=== PATIENT | male | born 1935 | race Caucasian/White ===

== ENCOUNTER 2019-02-04 05:43 | Inpatient (IN) | payer MEDICARE, OTHER, SELFPAY ==
[2019-01-21 09:51] VITALS: BMI 24.0
[2019-02-04] VITALS (13 sets, daily range): BP systolic 93–157; BP diastolic 55–84; PULSE 67–91; RESP 12–20; TEMP 35.8–37.1; O2SAT 12–100; BMI 24.0
--- NOTE | 2019-02-04 | DI.RAD.S_ITS ---
PROCEDURE: XR LUMBAR SPINE 2-3V INDICATIONS: L4-5 TLIF TECHNIQUE: 2 intraoperative fluoroscopic views of the lumbar spine were acquired. COMPARISON: [facility], , L-SPINE 2-3 VIEWS, 08/10/2016, 11:24. FINDINGS: Deangelo intraoperative fluoroscopic images of lumbar spine shows transpedicular fusion at L4-5 level with intervertebral spacer placement. Alignment of lumbar spine is anatomic. IMPRESSION: Fluoroscopy guidance was provided intraoperatively for L4-5 fusion. Dictated by: Bao Shearer M.D. on 02/04/2019 at 10:54 Approved by: Bao Shearer M.D. on 02/04/2019 at 10:57
[2019-02-04] MEDS: LACTATED RINGERS 1,000 ML 42 ML IV (07:00)
--- NOTE | 2019-02-04 07:28 | PM.PREOP ---
Pre-operative Note Interval Note History & Physical reviewed/Exam performed by Physician: Yes Changes to H&P: No
--- NOTE | 2019-02-04 07:28 | PM.OP.1 ---
Operative Date/Time/Diagnoses Date of procedure: 02/04/19 Time of procedure: 10:14 Pre-op diagnosis: lumbar stenosis with radiculopathy Lumbar Spondylolisthesis Post-op diagnosis: same Procedure & Clinicians Procedure: L4-5 laminectomy L4-5 TLIF (post/post interbody fusion) L4,5 screws cage icbg aspirate use of microscope placement of epidural catheter Same procedure as scheduled: Yes Indications: [age] year old male with intractable pain from stenosis. They had failed conservative management and requested operative intervention. Risks and benefits of surgery were discussed and appropriate consents were obtained. Surgeon: Maikol Rueda Circulation Tender: Dinora Koch Anesthesia Type: General Operative Notes Findings: None Closure Type: primary Specimen(s): none sent Prosthetic devices, grafts, tissues, transplants, or devices: NuVasive MAS reline screws Globus Rise cage Applied: catheter Estimated Blood Loss (mL): 20 Blood products transfused: none Procedure in detail: The patient was brought to the operating room and intubated on the table. A time-out was performed. They were then rolled over to the well-padded Raji table in the prone position. Preoperative antibiotics were given. The back was prepped and draped in the standard sterile fashion. Using fluoroscopy, a 4 cm longitudinal incision was made to the left of the midline. We used Bovie to come down to and split the lumbodorsal fascia. Using fluoroscopy and monitoring, we then percutaneously placed Jamshidi needles down the pedicles of L4 and L5 on the left side. These were changed out to guidewires and then we tapped and then placed the NuVasive MAS Reline screw shanks. We then opened up the retractors and used Bovie to clear up the posterolateral gutter as well as medially along the lamina to the spinous processes. A bur was used to decorticate the transverse processes. We brought in the microscope. Using a combination of bur and Kerrison rongeurs, a laminectomy was performed from the left side. We cleared over past the midline and carefully depressed the dura until we were able to decompress the opposite side. We cleared out the neural foramen. This completed the laminectomy at L4-5. This was separate and distinct from the TLIF approach as we were extensively decompressing the canal and the nerves. We then began the TLIF prep. A complete facetectomy was performed on this side at L4-5. We carefully cleaned up the remainder of the foramen until we could easily retract the exiting root as well as clearing medially below the dura and expose the disc space. The disc was prepped with bipolar and then an annulotomy was performed. We performed a diskectomy using a combination of paddles, aria, pituitaries, and curettes. We distracted the disc using a paddle and locked the retractor in an open position. We then filled the disc space with Osteocel bone graft. We then placed the globus Rise cage under fluoroscopy and then filled this in with more bone graft. The distraction on the retractor was released to compress down. This completed the posterior interbody fusion portion of the TLIF at L4-5. We then placed the screw heads, oscar, and locked down the set screws. The wound was copiously irrigated. A small stab incision was made over the PSIS. We used a Jamshidi needle to aspirate several mL of bone marrow from the pelvis. This was mixed with the remaining Osteocel and combined with all of the locally harvested bone graft and placed in the posterolateral gutter for the posterior fusion of the TLIF at L4-5. An epidural catheter was then placed in the spinal canal by carefully depressing the dura and advancing it 6 cm cephalad under the remaining lamina without resistance. The muscle fascia was closed. The catheter was then injected with a solution containing 4 mL of 0.5% Marcaine, 1 mg Stadol, 4 mg Duramorph, and 100 mcg of fentanyl. This was injected without resistance and the catheter was pulled. We then went to the opposite side. Again using fluoroscopy, a 3 cm incision was made and Bovie was used to come down to split the fascia. Using neural monitoring and fluoroscopy, Jamshidi needles were advanced down the pedicles of L4 and L5 on the right side. These were switched over guidewires, tapped, and screws placed. We then placed a oscar and locked the set screws on this side. The wound was irrigated. The fascia was closed. Vancomycin powder was placed in the wounds. The superficial and skin were closed. A sterile dressing was placed. The patient was then rolled over extubated and brought to recovery room without complications. Complications: none Condition: stable Disposition: PACU Plan for aftercare: Inpatient. Up with PT.
[2019-02-04] MEDS: CEFAZOLIN 2 GM/100 ML FROZ.PIGGY IV ×3 (07:50→23:43)
--- NOTE | 2019-02-04 08:28 | SUR.OPER ---
Prone on spine table, head in foam head support, padded chest and pelvic supports, gel pad at knees, lower legs supported by pillows; nipples, genitalia and toes free of pressure, arms secured on foam padded arm boards at <90 degrees abduction. Tape over blanket at thigh secured to table.
[2019-02-04] MEDS: VANCOMYCIN 1,000 MG VIAL 1000 MG TOP (08:40)
[2019-02-04] MEDS: THROMBIN (RECOMBINANT) 5,000 UNIT VIAL 5000 UNIT TOP (08:41)
[2019-02-04] MEDS: SODIUM CHLORIDE 0.9% 1,000 ML, GENTAMICIN 80 MG IRR (08:42)
[2019-02-04] MEDS: BUPIVACAINE 0.5% (PF) 4 ML, MORPHINE-PF 4 MG, BUTORPHANOL 1 MG, fentaNYL 100 MCG INJ (09:55)
--- NOTE | 2019-02-04 13:44 | CM.DANOTE ---
Discharge Planning/Care Management DCP: assessment: case received, EMR reviewed and went to room to check in with pt and or family. Pt was found to still be in surgery. DCP contact info placed on white board in room. Documentation reveals that pt is an 83 year old male who admitted early this morning for a planned spinal surgery: Surgeon: Dr. Rueda. PCP: Dr. Jose Parisi Payer: Medicare and [employer] Pt's preop plan, see pre-anesthesia assessment template below, does indicate that pt has planned for assistance after surgery but unknown at this time what that might be. Anticipate OT and PT will be ordered. DCP team will follow for d/c issues and options. CM Discharge Assessment Start: 02/04/19 13:42 Freq: Status: Active Protocol: Document 02/04/19 13:43 ITV (Rec: 02/04/19 13:44 ITV [id number]) Discharge Planning Assessment Advance Directives? No: Declines further information History Provided By Medical Record Prior Living Arrangements Mobile home Household Members none Whiteboard Updated in Patient Room with Yes name and ext. # of Bog Worker Review Status In Process Next Review Type Continued Stay Review Pre-Anesthesia Assessment Start: 01/21/19 09:51 Freq: Status: Active Protocol: Document 01/21/19 09:51 CAB (Rec: 01/21/19 11:01 CAB [id number]) Pre-Anesthesia Assessment Patient Also Known As (SUDARSHAN) Stacia Patient Information Reviewed Via Phone Assessment Assessment Completed With Patient Diagnostic Results BMP/CMP CBC EKG Primary Care Provider Dalton Shaikh Medical Clearance Received Yes Seen Specialist in Last 12 Months Yes Specialist Seen Orthopedist Comment PCP pre-op/clearance 01/14/19 scanned to record Primary Language Kyrgyz Semiconductor Engineer Required No Height 162.56 cm Weight 63.503 kg Body Mass Index (BMI) 24.0 Hearing Ability Hard of Hearing Use of Hearing Aid Dentition Type Partial- Lower Full- Lower Barriers to Learning Auditory Other Aids No Hx Anesthesia Reactions No Hx Family Anesthesia Reaction No Hx Malignant Hyperthermia No Hx Blood Transfusions No Anesthesia Review Requested No Paranormal Investigator No alcohol intake former Smoking Status Former smoker how long ago did patient quit smoking Quit age 29 Substance Use Type does not use Pain Present Pain Reported Musculoskeletal Symptoms Abnormal Gait Back Pain Difficulty Walking Joint Pain Numbness Radiating Pain into Limb History of Falling (Recent or History of No ) Patient is completely paralyzed or No completely immobile Mental Status Oriented to own ability Is patient on oxygen? No Does patient have MARIE/SOB Yes: Hx of COPD, Asthma Hx Sleep Apnea No Currently Taking a Beta Dieter No Can You Climb a Flight of Stairs Without No SOB Hx Chest Pain No: NE w/stent x 1 2008 Hx SOB Yes: Hx of COPD, Asthma Hx Syncope or Dizziness No Anti-Coagulant Therapy No Has a Curriculum Coordinator Yes: Dr. Gutierres-last visit Cardiac Testing No Hx Pacemaker/ICD No Pacemaker Rep Required? No Cardiac Clearance Received Not Applicable Comment Cardiac visit ECG scanned to record Diet Type At Home Regular dysphagia No Urinary Catheter Present No Hx Urinary Self Catheterization No Diabetes No Hx Drug Resistant Organism No Presence of External or Internal Medical No Devices Have you traveled outside the [facility] in the last 30 days? Marital Status / Lives With none Prior Living Arrangements Mobile home Support System Friend(s) Sibling(s) Does the Patient Have Assistance After Yes Surgery Patient Discharge Plan Description Return Home Comment Pt advised 2-3 day length of stay per surgeon's office Feels Safe in Current Environment Yes Been Physically Hurt or Threatened By a No Person in Current Environment Do you have thoughts of harming yourself None or others? Are you currently considering suicide? No Do you have a plan to hurt yourself or No Plan others? Do You Have Any Spiritual Beliefs That No May Affect Your HC Choices? Do You Have Any Cultural Practices That No May Affect Your HC Choices? Spiritual Referral In-House Brokerage Clerk Comment Darnell Who Can We Speak to About Patient's Care Family, friends Identifying Code for Release of Patient Declines to issue Information Health Care Proxy/Next of Kin Ana Paula (sister) Health Care Proxy Emergency Contact Name Ana Paula () Emergency Contact Advance Directives? No: Declines further information PAC Instructions Durable medical equipment Medications to take/avoid Nasal antibiotic NPO Post-op transportation Pre-surgical wash Sensory aids Sturdy shoes/comfortable clothes
[2019-02-04] MEDS: CELECOXIB 200 MG CAPSULE 400 MG PO (14:49)
[2019-02-04] MEDS: LACTATED RINGERS 1,000 ML 125 ML IV ×2 (14:49→20:50)
--- NOTE | 2019-02-04 15:16 | PC.NURSE ---
Pt is complaining of right upper arm pain, where picc line is inserted. got an order for patient to have ultrasound, this has not been done yet. TOOLS AND PARTS ATTENDANT to call down and see if she can get a hold of them to get this done. Pt has ostomy bag placed on r.upper side for fistula drainage, o drainage noted. Pt also has a gtube placed to l.side of abdomen that drains into a bowers bag, she had 450cc of bile colored drainage out. Pt given iv dilaudid x2 and ativan x1 for nausea.
--- NOTE | 2019-02-04 15:22 | PC.NURSE ---
Pt arrived to floor around 1145. He has been sleepy but is waking up now and was never lethargic. LR is infusing at 125cc an hour and is tolerating this well. Just given some ice water and pt is comfortable. Back dressing wnl and pt is able to move side to side.
[2019-02-04] MEDS: METOCLOPRAMIDE 10 MG/2 ML INJ IV (20:01)
[2019-02-04] MEDS: CELECOXIB 200 MG CAPSULE PO (20:55)
[2019-02-04] MEDS: GABAPENTIN 300 MG CAPSULE PO (20:55)
[2019-02-04] MEDS: SENNOSIDES 8.6 MG TABLET 17.2 MG PO (20:55)
[2019-02-04] MEDS: DOCUSATE 100 MG CAPSULE PO (20:55)
[2019-02-04] MEDS: SIMVASTATIN 40 MG TABLET PO (20:56)
--- NOTE | 2019-02-04 23:59 | PC.NURSE ---
Pt aleert when awakened, but remains drowsy, PT opted out for getting pt OOB this shift due to weakness and drowsiness. removed O2, SpO2 97-98%RA, LS clear. BT+, denies nausea, but at 1700 pt had 50mL emesis, and again at 2000 100mL emesis, admin raglan IVP, effective, able to keep down 2100 meds. Pt's caregiver in to visit. Cooney patent and draining clear yellow urine, 800mL out this shift. gauze/tegaderm low back drsg CDI. R hand LR @ 125 infusing. Bed alarm on.
[2019-02-05] VITALS (7 sets, daily range): BP systolic 110–155; BP diastolic 60–91; PULSE 74–86; RESP 16–20; TEMP 36.6–37.6; O2SAT 96–100
[2019-02-05] MEDS: ONDANSETRON 4 MG/2 ML INJ IV ×3 (01:50→23:26)
[2019-02-05] MEDS: SODIUM CHLORIDE 0.9% FLUSH 10 ML IV ×2 (01:54→21:55)
[2019-02-05] MEDS: LACTATED RINGERS 1,000 ML 125 ML IV (05:10)
[2019-02-05 06:01] LABS: Hematocrit 36.9 % (41-53)
--- NOTE | 2019-02-05 08:01 | PM.PNPO.1 ---
Subjective Date Patient Seen: 02/05/19 Time Patient Seen: 08:01 Interval history: Only about 2/10 back pain. Some tingling in the legs but no leg pain. has been nauseated since surgery. Exam Vital Signs (past 8 hours): - 02/05/19 05:29 Temperature 98.2 F Pulse Rate 74 Respiratory Rate 20 Blood Pressure 110/60 Pulse Oximetry 100 Oxygen Delivery Method Nasal Cannula Oxygen Flow Rate 2 Const Orientation: alert and oriented x3 Back/Spine/Pelvis Other: Mild dry drainage on the bottom right. 5/5 motor both lower extremities. Objective Labs Result Diagrams: 02/05/19 04:50 Labs: Laboratory Results - last 24 hr 02/05/19 04:50 Hgb 12.0 L Hct 36.9 L Assessment & Plan Post-op Postoperative Procedures Operation Date: 02/04/19 07:45 Actual Procedures Side Surgeon p L4-5 laminectomy and instrumented fusion (TLIF) w/bone graft Maikol Rueda MD overall he is doing very well. Continue with antinausea medications. he does get nausea from narcotics but has been able to tolerate tramadol. He can start using that when his pain starts increasing as the epidural wears off today. Quality VTE Deep Vein Thrombosis/Pulmonary Embolism Present on Admission: No
[2019-02-05] MEDS: ASPIRIN EC 81 MG TABLET PO (08:13)
[2019-02-05] MEDS: CHOLECALCIFEROL (VITAMIN D3) 5,000 UNIT TABLET 5000 UNIT PO (08:13)
[2019-02-05] MEDS: CELECOXIB 200 MG CAPSULE PO ×2 (08:13→21:40)
[2019-02-05] MEDS: DOCUSATE 100 MG CAPSULE PO ×2 (08:13→21:40)
[2019-02-05] MEDS: MULTIVITAMIN 1 TABLET 1 TAB PO (08:13)
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
--- NOTE | 2019-02-05 10:58 | PC.NURSE ---
Addendum entered by Bridgett Marquis R.N. 02/05/19 15:15: Asked pt if okay to d/c his bowers as he has worked well with pt. States that he would like to wait until tomorrow morning to have this removed. Pt complained of pain and given 50mg of tramadol which was effective for discomfort. Original Note: 0800-Pt is A&Ox3, he denies pain. Dressing to lower back with a moderate amount of bloody drainage that is dried. Pt states that he has some numbness and tingling to both legs, which he describes as feeling much better after surgery. Pt has a bowers that is putting out yellow urine. After he has worked with PT, bowesr catheter will come out. IVF infusing as pt has not taken much po in. Given zofran before eating and po medication. He is now working with PT and denies discomfort.
--- NOTE | 2019-02-05 13:02 | CM.DPC ---
DCP Cont: Met with patient to discuss discharge planning. Pleasant. Alert and oriented. Patient lives in [place] with his dog, and his sister lives nearby. He stated that his sister would be helping him at home. She also resides in [place]. Patient stated that he had been having numbness in his left foot, and had been hard for him to get around. In this perspective, he looked up Dr. Rueda and had a consult with him after his MRI. He then decided to have spinal surgery. Patient stated that he had been walking approximately 3 miles a day before he starting having these symptoms. 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 He stated, he plans to go home from the hospital, and already has physical therapy set up at [facility]. Patient stated, his foot is no longer numb after having surgery. He will be working with physical therapy today. P: DCP to continue to follow. Plan is for home when stable with outpatient physical therapy. Blanca Lindsay RN/Medicaid Billing Clerk
[2019-02-05] MEDS: TRAMADOL 50 MG TABLET PO ×2 (14:23→21:43)
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
--- NOTE | 2019-02-05 15:10 | PT.IPTN ---
Current Diagnoses Spondylolisthesis, lumbar region (02/04/19) Spinal stenosis, lumbar region with neurogenic claudication (02/04/19) Surgery Performed Operation Date: 02/04/19 07:45 Actual Procedures p L4-5 laminectomy and instrumented fusion (TLIF) w/bone graft - Maikol Rueda MD Physical Therapy Treatment Note M2 PT-IP Current Condition Start: 02/04/19 17:03 Freq: NEEDED Status: Active Protocol: Document 02/05/19 10:28 AB (Rec: 02/05/19 12:56 AB [id number]) Physical Therapy Current Condition Current Condition Evaluation Date 02/05/19 Treatment Diagnosis s/p L4-5 TLIF; difficulties in walking Onset Date 02/04/19 Precautions Lumbar Precautions Log Roll No Twisting Limit Bending Lifting Restriction of 10 lbs Gait Belt above Incisional Area M3 PT-IP Subjective Start: 02/04/19 17:03 Freq: NEEDED Status: Active Protocol: Document 02/05/19 15:10 AB (Rec: 02/05/19 16:39 AB [id number]) Subjective Physical Therapy Visit Type Type Treatment Note Visit Start Time 15:10 Visit Stop Time 15:33 Total Visit Minutes 23 Number of FIBERGLASS INSULATION INSTALLER Visits 0 Physical Therapy Visit Comments Patient Comments pt agreeable to do PT Therapy Pain Assessment Pain When Pain Assessed At Rest Pain Present Pain Present Pain Reported Location Lower Back Intensity 2 Scale Used Numeric (1 - 10) Pain Management Techniques Apply Cold Timing of Activity with Medications M4 PT-IP Mobility and Gait Start: 02/04/19 17:03 Freq: NEEDED Status: Active Protocol: Document 02/05/19 15:10 AB (Rec: 02/05/19 16:39 AB [id number]) PT-Bed Mobility Assessment Rolling Type of Rolling Log Rolling Level of Assist Standby Assistance Supine to Sit Supine to Sit Standby Assistance Scooting Scooting to Edge of Bed Standby Assistance PT-Transfer Assessment Sit to and From Stand Sit to and from Stand Standby Assistance Equipment Transfer Assistive Device Gait Belt Front Wheeled Walker Orthotic/Prosthetic Devices or Brace: No Gait Assessment Gait Gait Assistance Required: Standby Assistance Contact Guard Assist Distance (Feet) 300 Able to Maintain Weight Bearing Status Yes During Gait Assistive Devices Assistive Device Gait Belt Front Wheeled Walker Orthotic/Prosthetic Devices or Brace: No Gait Deviations General Gait Pattern Antalgic Narrow Based Gait Factors Limiting Gait Function Factors Limiting Gait Function Decreased Strength Limited Range of Motion Pain Poor Balance Comments Gait Comments pt ambulated towards the stairs >300 ft using FWW SBA to CGA and cues for safety. pt then ambulated back to his room after stair training using FWW >300 ft SBA to CGA. Stair Climbing Assessment Evaluation Level of Assist On Stairs Contact Guard Assistance Devices Stair Climbing Assistive Devices Left Railing Technique/Endurance Stair Climbing Direction Ascend and Descend Stair Climbing Technique Step Over Step Step to Step Number of Steps Climbed 3 Query Text: Stair Climbing Set # Repetitions (reps) 2 Comments Stair Climbing Comments pt completed step over step ascending the stairs but did step to step descending. M5 PT-IP Objective Assessments Start: 02/04/19 17:03 Freq: NEEDED Status: Active Protocol: Document 02/05/19 10:28 AB (Rec: 02/05/19 12:56 AB [id number]) Orientation Orientation/Cognition Level of Alertness Alert Orientation Name Age Place Situation Language Function Ability Hard of Hearing Safety Awareness Understands Safety Issues Memory Description Short Term Impaired Gross Range of Motion Lower Extremity ROM Assessment Within Functional Limits Strength Lower Extremity Strength Assessment Within Functional Limits Coordination Assessment Gross Coordination Gross Coordination WNL Sensation Assessment Sensation Gross Sensation Left LE Impaired Sensation Description Numbness Comments Sensation Comments stated that L lower leg still feels a little numb Muscle Tone Muscle Tone WNL Yes Other Assessments Other Other Assessments increase L genu varum M6 PT-IP Treatment Start: 02/04/19 17:03 Freq: NEEDED Status: Active Protocol: Document 02/05/19 15:10 AB (Rec: 02/05/19 16:39 AB [id number]) Physical Therapy Treatment Education Education Provided Precautions Safety M7 PT-IP Assessment and Plan Start: 02/04/19 17:03 Freq: NEEDED Status: Active Protocol: Document 02/05/19 15:10 AB (Rec: 02/05/19 16:39 AB [id number]) PT Summary Assessment and Plan Potential Rehabilitation Potential Good Summary Impairments Pain ROM Strength Balance Sensation Bed Mobility Transfers Gait Activity Tolerance Progress Towards Goals Progressing Toward Goals Assessment Summary pt is progressing well with mobility and requires SBA to CGA. pt plans to go with his sister to assist him as needed . pt may go home when medically stable. Goals Bed Mobility Goal Independent Transfer Goal Independent Front Wheeled Walker Gait Goal Independent Front Wheel Walker Gait Distance 250 Other Goals uup/down 3 steps L rail ascending SBA Days to Meet Goals 3 Frequency of Treatment Frequency Of Treatment Twice a Day Treatment Plan Physical Therapy Treatment Plan Bed Mobility Training Transfer Training Gait Training Therapeutic Exercise Balance Retraining Post Op Education Discharge Planning Hot or Cold Pack Neuromuscular Re-ed Coordination Retraining Manual Therapy Other Recommendations and Next Treatment bed mobility log roll, Focus ambulation, stair climbing Recommendations To Nursing Amount of Assist Needed 1 Person Assist Discharge Recommendations PT Discharge Recommendations Home with Assistance
[2019-02-05] MEDS: GABAPENTIN 300 MG CAPSULE PO (21:40)
[2019-02-05] MEDS: SIMVASTATIN 40 MG TABLET PO (21:40)
[2019-02-05] MEDS: SENNOSIDES 8.6 MG TABLET 17.2 MG PO (21:40)
[2019-02-05] MEDS: ALBUTEROL HFA 60 PUFF/8 GM INH INH (21:41)
[2019-02-06] VITALS (7 sets, daily range): BP systolic 109–149; BP diastolic 60–89; PULSE 73–88; RESP 15–20; TEMP 36.8–37.5; O2SAT 93–100
--- NOTE | 2019-02-06 06:21 | PC.NURSE ---
Cooney Catheter discontinued at 0620. Catheter intact w/ no resistance and pt tolerated well. Provided pt with a urinal at bedside and call light within reach.
--- NOTE | 2019-02-06 07:29 | PM.PNPO.1 ---
Subjective Date Patient Seen: 02/06/19 Time Patient Seen: 07:29 Interval history: Pain not bad at all. Just taking tramadol at this point. Still having some nausea but better. Has been up and mobilizing with therapy. Cooney just removed. Exam Vital Signs (past 8 hours): - 02/06/19 05:30 Temperature 99.5 F Pulse Rate 73 Respiratory Rate 16 Blood Pressure 109/62 Pulse Oximetry 96 Oxygen Delivery Method Room Air Oxygen Flow Rate 0 Const Orientation: alert and oriented x3 Back/Spine/Pelvis Other: Moderate right lower aspect of dressing drainage. 5/5 motor both lower extremities. Objective Labs Result Diagrams: 02/05/19 04:50 Assessment & Plan Post-op Postoperative Procedures Operation Date: 02/04/19 07:45 Actual Procedures Side Surgeon p L4-5 laminectomy and instrumented fusion (TLIF) w/bone graft Maikol Rueda MD He is doing well. Continue with just tramadol for pain medication. Continue mobilize with physical therapy and anticipate discharge tomorrow. Quality VTE Deep Vein Thrombosis/Pulmonary Embolism Present on Admission: No
[2019-02-06] MEDS: TRAMADOL 50 MG TABLET PO ×2 (09:29→13:57)
[2019-02-06] MEDS: DOCUSATE 100 MG CAPSULE PO (09:33)
[2019-02-06] MEDS: CELECOXIB 200 MG CAPSULE PO (09:33)
[2019-02-06] MEDS: CHOLECALCIFEROL (VITAMIN D3) 5,000 UNIT TABLET 5000 UNIT PO (09:33)
[2019-02-06] MEDS: MULTIVITAMIN 1 TABLET 1 TAB PO (09:33)
[2019-02-06] MEDS: ASPIRIN EC 81 MG TABLET PO (09:33)
--- NOTE | 2019-02-06 10:25 | PC.NURSE ---
Addendum entered by Leah Olguin R.N. 02/06/19 13:58: PAIN - given 50mg po tramadol with pudding and crackers prior to the afternoon phys therapy for back discomfort 3 on scale 0/10. Addendum entered by Leah Olguin R.N. 02/06/19 13:34: PAIN - remains comfortable in chair, declines pain medication at this time, prefers to wait until a little later after phys therapy. Addendum entered by Leah Olguin R.N. 02/06/19 10:34: [employer]TE[employer] - addenum - pt has sutured incision and not yong. Steri strips below are intact. Original Note: AM NOTE - awakened for breakfast, states earlier nausea resolved, pain 2-3 on scale 0/10, ra 97%, p80, does have hx hortensia le numbness that has improved post op, wiggles toes, assist x 1 person w/fww to chair, shadow drainage 4x4 at distal end w/op site over, later am dsg removed, parallel stapled incisions w/o drainage, some surrounding bruising, does have a thin red line from old op site, no breakdown or blisters noted, gently cleaned margins and replaced with coversite, given tramadol with breakfast for discomfort, anthony up with phys therapy.
--- NOTE | 2019-02-06 12:10 | OT.IP.TRT ---
Current Diagnoses Spondylolisthesis, lumbar region (02/04/19) Spinal stenosis, lumbar region with neurogenic claudication (02/04/19) Surgery Performed Operation Date: 02/04/19 07:45 Actual Procedures p L4-5 laminectomy and instrumented fusion (TLIF) w/bone graft - Maikol Rueda MD Occupational Therapy Treatment Note M2 OT-IP Current Condition Start: 02/05/19 15:43 Freq: Status: Active Protocol: Document 02/05/19 14:28 PJM (Rec: 02/05/19 15:59 PJM [id number]) Occupational Therapy Current Condition Current Condition Evaluation Date 02/05/19 Treatment Diagnosis decreased self care, functional mobility s/p L4-5 lami, TLIF Diagnosis Onset Date 01/25/19 Post Operative Precautions Lumbar Precautions Log Roll No Twisting Limit Bending Lifting Restriction of 10 lbs Gait Belt above Incisional Area M3 OT- IP Subjective and Pain Start: 02/05/19 15:43 Freq: Status: Active Protocol: Document 02/06/19 12:10 PJM (Rec: 02/06/19 17:05 PJM [id number]) OT- Subjective Occupational Therapy Visit Type Type Treatment Note Visit Start Time 11:15 Visit Stop Time 12:10 Total Visit Minutes 25 Notes Pt awake and alert in bedside chair; agreeable to tx. Occupational Therapy Visit Comments Patient Comments I slept good last night. Patient/Caregiver Goals to go home tomorrow OT Pain Assessment Pain When Pain Assessed After Treatment Pain Present Pain Present Pain Reported Location Lower Back Intensity 3 Scale Used Numeric (1 - 10) Description Aching Acute Pain Behaviors Guarding Management Techniques Distraction Re-positioning Timing of Activity with Medications M4 OT- IP ADL's Start: 02/05/19 15:43 Freq: Status: Active Protocol: Document 02/06/19 12:10 PJM (Rec: 02/06/19 17:05 PJ [id number]) OT [id number] General Evaluation Self-Feeding Ability Independent OT ADL-Grooming General Evaluation Grooming Ability Standby Assistance Areas Needing Assistance Combing/Brushing Hair Face Washing Comments OT Grooming Comments standing at sink, pt tends to drift posteriorly in standing but self corrects without cues and no loss of balance noted OT ADL-Oral Care General Eval Oral Care Ability Standby Assistance Areas of Assistance Brushing Teeth Devices Oral Care Devices Toothbrush Comments Oral Care Comments standing at sink, provide education re: body mechanics OT ADL-Dressing General Eval Lower Body Dressing Ability Standby Assistance Areas Needing Assistance Socks Comments OT Dressing Comments practiced doffing socks with dialysis equipment technician and donning socks with hard sock aid, with pt needing min cues for sock aid use OT ADL-Toileting General Evaluation Toileting Ability Standby Assistance Comments OT Toileting Comments standing by toilet to use urinal (for output measurement) OT ADL-Bathing Comments OT Bathing Comments to be assessed M5 OT- IP IADL's Start: 02/05/19 15:43 Freq: Status: Active Protocol: Document 02/05/19 14:28 PJM (Rec: 02/05/19 15:59 PJM [email or web address]) OT-Instrumental Activities of Daily Living Deficits IADL Deficits Identified Deficits Home Safety Awareness Awareness of Need for Assistance at Home Good Awareness Ability to Problem Solve Emergency Able to Problem Solve Situations Medication Management Medication Management No Deficits Identified Money Management Money Management No Deficits Identified Meal Preparation Meal Preparation Caregiver Provides Assist Meal Preparation Comments family and neighbors to assist until pt able [employer] Executive [employer] Executive Caregiver Provides Assist [employer] Executive Comments family and neighbors to assist until pt able Driving Driving Caregiver Provides Assist Driving Comments family and neighbors to assist until pt able M6 OT- IP Functional Cognition Start: 02/05/19 15:43 Freq: Status: Active Protocol: Document 02/06/19 12:10 PJM (Rec: 02/06/19 17:05 [facility] [email or web address]) Cognitive Factors Limiting Selfcare Function Cognitive Ability Level of Alertness Alert Patient Orientation Name Age Birthday Month Date Year Day of Week Place Situation Attention Span Ability Capable of Focused Attention Capable of Sustained Attention Ability to Follow Commands Able to Follow Multi-Step Commands Memory Description No Deficits Noted Safety Awareness No Deficits Noted Problem Solving Ability No deficits Noted M7 OT- IP Mobility and Balance Start: 02/05/19 15:43 Freq: Status: Active Protocol: Document 02/06/19 12:10 PJM (Rec: 02/06/19 17:05 [facility] [email or web address]) OT-Transfer Assessment Sit to and From Stand Sit to and from Stand Standby Assistance 1 Person Assistance Transfers Transfer Ability Standby Assistance 1 Person Assistance Technique Transfer Destination Chair Transfer Technique Stand Step Pivot Devices Transfer Assistive Devices Gait Belt Front Wheeled Walker Comments Mobility Comments pt tends to drift posteriorly when standing at sink but self corrects without cues and no loss of balance noted OT- Gait Assessment Gait Gait Assistance Required: Standby Assistance Distance (Feet) 25 Assistive Devices Assistive Device Gait Belt Front Wheeled Walker Comments Gait Ability Comments OT- Balance Assessment Sitting Balance and Reactions Static Sitting Balance Ability Good Dynamic Sitting Balance Ability Good Standing Balance and Reactions Static Standing Balance Ability Good Dynamic Standing Balance Ability Fair Comments Other Balance Tests/Deviations/Treatment pt tends to drift posteriorly : in standing but self corrects without cues and no loss of balance noted M8 OT- IP Objective Assessments Start: 02/05/19 15:43 Freq: Status: Active Protocol: Document 02/05/19 14:28 PJM (Rec: 02/05/19 15:59 PJM [id number]) OT Gross Range of Motion Upper Extremity Range of Motion Assessment Within Functional Limits OT Strength Upper Extremity Strength Assessment Within Functional Limits Hand Director Software Quality Assurance Strength Hand Dominance Right OT- Coordination Assessment Comments Coordination Comments BUE WFL OT-Muscle Tone Assessment Muscle Tone WNL Yes OT Sensation Assessment Comments Summary Comments Pt denies deficits in BUES M9 OT- IP Assessment and Plan Start: 02/05/19 15:43 Freq: Status: Active Protocol: Document 02/06/19 12:10 PJM (Rec: 02/06/19 17:05 PJM [email or web address]) OT Summary Assessment and Plan Potential Rehabilitation Potential Good Summary OT Impairments Pain Balance Dressing Toileting Bathing Toilet Transfers Shower Transfers Progress Towards Goals Progressing Toward Goals Assessment Summary Pt making good progress with activity tolerance and independence in basic self care today as described above. Plan one more OT session for further education re: body mechanics and adapted techniques for showering, dressing in street clothes and car transfers. Anticipate pt will d/c home tomorrow with assist from sister and multiple friends. Goals Grooming Goal Independent Dressing Goal Independent Long Handled Shoe [employer] Systems Analyst Consultant Sock Aid Toileting Goal Independent Bathing Goal Standby Assistance Long Handled Sponge or [place] Toilet Transfer Goal Independent Shower Transfer Goal Standby Assistance Tub/Shower Combination Tub Transfer Bench Patient/Caregiver Education Goal Demonstrate Post-Op Precautions Demonstrate Energy Conservation and Pacing Days to Meet Goals 1 Frequency of Treatment Frequency Of Treatment Once a Day Treatment Plan OT Treatment Plan ADL Training Functional Mobility Patient/Family Education Discharge Planning Discharge Recommendations OT Discharge Recommendations Home with Assistance Home Equipment Needs transfer tub bench
--- NOTE | 2019-02-06 12:23 | PT.IPTN ---
Current Diagnoses Spondylolisthesis, lumbar region (02/04/19) Spinal stenosis, lumbar region with neurogenic claudication (02/04/19) Surgery Performed Operation Date: 02/04/19 07:45 Actual Procedures p L4-5 laminectomy and instrumented fusion (TLIF) w/bone graft - Maikol Rueda MD Physical Therapy Treatment Note M2 PT-IP Current Condition Start: 02/04/19 17:03 Freq: NEEDED Status: Active Protocol: Document 02/05/19 10:28 AB (Rec: 02/05/19 12:56 AB [id number]) Physical Therapy Current Condition Current Condition Evaluation Date 02/05/19 Treatment Diagnosis s/p L4-5 TLIF; difficulties in walking Onset Date 02/04/19 Precautions Lumbar Precautions Log Roll No Twisting Limit Bending Lifting Restriction of 10 lbs Gait Belt above Incisional Area M3 PT-IP Subjective Start: 02/04/19 17:03 Freq: NEEDED Status: Active Protocol: Document 02/06/19 12:17 SA (Rec: 02/06/19 12:22 [email or web address]) Subjective Physical Therapy Visit Type Type Treatment Note Visit Start Time 10:11 Visit Stop Time 10:38 Total Visit Minutes 27 Number of SNOW BLOWER Visits 1 Physical Therapy Visit Comments Patient Comments pt agreeable to do PT Patient Goals To return home to [place]. Therapy Pain Assessment Pain When Pain Assessed During Mobility Pain Present Pain Present Pain Reported Location Lower Back Intensity 1 Scale Used Numeric (1 - 10) Pain Management Techniques Apply Cold Timing of Activity with Medications M4 PT-IP Mobility and Gait Start: 02/04/19 17:03 Freq: NEEDED Status: Active Protocol: Document 02/06/19 12:17 SA (Rec: 02/06/19 12:22 [email or web address]) PT-Transfer Assessment Sit to and From Stand Sit to and from Stand Standby Assistance Equipment Transfer Assistive Device Gait Belt Front Wheeled Walker Orthotic/Prosthetic Devices or Brace: No Transfers Transfer Destination Chair Transfer Technique Stand Step Pivot Transfer Ability Level of Assist Standby Assistance Contact Guard Assistance 1 Person Assistance Comments Mobility Comments Pt reports low pain levels and does not appear gaurded with movements, SBA-CGA for mst mobility tasks. Understands spinal precautions. Gait Assessment Gait Gait Assistance Required: Standby Assistance Distance (Feet) 300 Able to Maintain Weight Bearing Status Yes During Gait Assistive Devices Assistive Device Gait Belt Front Wheeled Walker Orthotic/Prosthetic Devices or Brace: No Gait Deviations General Gait Pattern Antalgic Narrow Based Gait Factors Limiting Gait Function Factors Limiting Gait Function Decreased Strength Limited Range of Motion Poor Balance Comments Gait Comments Gait training in halls with FWW and SBA for 300 + feet with min cues for pacing and posture. Stair Climbing Assessment Evaluation Level of Assist On Stairs Contact Guard Assistance Devices Stair Climbing Assistive Devices Left Railing Technique/Endurance Stair Climbing Direction Ascend and Descend Stair Climbing Technique Step Over Step Number of Steps Climbed 3 Query Text: Stair Climbing Set # Repetitions (reps) 2 Comments Stair Climbing Comments Step over step pattern with CGA and use of L rail, min cues for safety. PT-Balance Assessment Sitting Balance and Reactions Static Sitting Balance Ability Good Dynamic Sitting Balance Ability Good M5 PT-IP Objective Assessments Start: 02/04/19 17:03 Freq: NEEDED Status: Active Protocol: Document 02/05/19 10:28 AB (Rec: 02/05/19 12:56 AB [id number]) Orientation Orientation/Cognition Level of Alertness Alert Orientation Name Age Place Situation Language Function Ability Hard of Hearing Safety Awareness Understands Safety Issues Memory Description Short Term Impaired Gross Range of Motion Lower Extremity ROM Assessment Within Functional Limits Strength Lower Extremity Strength Assessment Within Functional Limits Coordination Assessment Gross Coordination Gross Coordination WNL Sensation Assessment Sensation Gross Sensation Left LE Impaired Sensation Description Numbness Comments Sensation Comments stated that L lower leg still feels a little numb Muscle Tone Muscle Tone WNL Yes Other Assessments Other Other Assessments increase L genu varum M6 PT-IP Treatment Start: 02/04/19 17:03 Freq: NEEDED Status: Active Protocol: Document 02/06/19 12:17 (Rec: 02/06/19 12:22 [email or web address]) Physical Therapy Treatment Exercises Exercises Ankle Pumps Gluteal Sets Quad Sets Education Education Provided Precautions Safety M7 PT-IP Assessment and Plan Start: 02/04/19 17:03 Freq: NEEDED Status: Active Protocol: Document 02/06/19 12:17 (Rec: 02/06/19 12:22 [email or web address]) PT Summary Assessment and Plan Potential Rehabilitation Potential Good Summary Impairments Pain ROM Strength Balance Sensation Bed Mobility Transfers Gait Activity Tolerance Progress Towards Goals Progressing Toward Goals Assessment Summary Pt progressing well, manages ambulation and stairs well with limited cues and adheres to spinal precautions, anticipate d/c home soon. Goals Other Goals up/down 3 steps L rail ascending SBA Frequency of Treatment Frequency Of Treatment Twice a Day Treatment Plan Physical Therapy Treatment Plan Bed Mobility Training Transfer Training Gait Training Therapeutic Exercise Balance Retraining Post Op Education Discharge Planning Hot or Cold Pack Neuromuscular Re-ed Coordination Retraining Manual Therapy Other Recommendations and Next Treatment bed mobility log roll, Focus ambulation, stair climbing Recommendations To Nursing Amount of Assist Needed 1 Person Assist Discharge Recommendations PT Discharge Recommendations Home with Assistance
--- NOTE | 2019-02-06 16:37 | PT.IPTN ---
Current Diagnoses Spondylolisthesis, lumbar region (02/04/19) Spinal stenosis, lumbar region with neurogenic claudication (02/04/19) Surgery Performed Operation Date: 02/04/19 07:45 Actual Procedures p L4-5 laminectomy and instrumented fusion (TLIF) w/bone graft - Maikol Rueda MD Physical Therapy Treatment Note M2 PT-IP Current Condition Start: 02/04/19 17:03 Freq: NEEDED Status: Active Protocol: Document 02/05/19 10:28 AB (Rec: 02/05/19 12:56 AB [id number]) Physical Therapy Current Condition Current Condition Evaluation Date 02/05/19 Treatment Diagnosis s/p L4-5 TLIF; difficulties in walking Onset Date 02/04/19 Precautions Lumbar Precautions Log Roll No Twisting Limit Bending Lifting Restriction of 10 lbs Gait Belt above Incisional Area M3 PT-IP Subjective Start: 02/04/19 17:03 Freq: NEEDED Status: Active Protocol: Document 02/06/19 16:31 SA (Rec: 02/06/19 16:37 [id number]) Subjective Physical Therapy Visit Type Type Treatment Note Visit Start Time 14:14 Visit Stop Time 14:38 Total Visit Minutes 24 Number of MEDICAL AFFAIRS MANAGER Visits 2 Physical Therapy Visit Comments Patient Comments pt agreeable to do PT Patient Goals To return home to [place]. Therapy Pain Assessment Pain When Pain Assessed During Mobility Pain Present Pain Present Pain Reported Location Lower Back Intensity 1 Scale Used Numeric (1 - 10) Pain Management Techniques Apply Cold Timing of Activity with Medications M4 PT-IP Mobility and Gait Start: 02/04/19 17:03 Freq: NEEDED Status: Active Protocol: Document 02/06/19 16:31 SA (Rec: 02/06/19 16:37 [id number]) PT-Bed Mobility Assessment Rolling Type of Rolling Log Rolling Level of Assist Standby Assistance Supine to Sit Supine to Sit Standby Assistance Sit to Supine Sit to Supine Standby Assistance Scooting Scooting to Edge of Bed Standby Assistance Scooting Up and Down in Bed Standby Assistance PT-Transfer Assessment Sit to and From Stand Sit to and from Stand Standby Assistance Equipment Transfer Assistive Device Gait Belt Front Wheeled Walker Orthotic/Prosthetic Devices or Brace: No Transfers Transfer Destination Bed Chair Transfer Technique Stand Step Pivot Transfer Ability Level of Assist Standby Assistance Contact Guard Assistance 1 Person Assistance Comments Mobility Comments Pt SBA with bed mobility and log roll technique, SBA- CGA with transfers, understands and adheres to spinal precautions. Gait Assessment Gait Gait Assistance Required: Standby Assistance Distance (Feet) 325 Able to Maintain Weight Bearing Status Yes During Gait Assistive Devices Assistive Device Gait Belt Front Wheeled Walker Orthotic/Prosthetic Devices or Brace: No Gait Deviations General Gait Pattern Antalgic Narrow Based Gait Factors Limiting Gait Function Factors Limiting Gait Function Decreased Strength Limited Range of Motion Poor Balance Comments Gait Comments Pt progressing well with gait, improved posture and normal step length, uses FWW safely and is able to avoid obstacles well. Stair Climbing Assessment Evaluation Level of Assist On Stairs Standby Assistance Devices Stair Climbing Assistive Devices Left Railing Technique/Endurance Stair Climbing Direction Ascend and Descend Stair Climbing Technique Step Over Step Stair Climbing Set # Repetitions (reps) 2 Comments Stair Climbing Comments PT safe with stair managenent with SBA. PT-Balance Assessment Sitting Balance and Reactions Static Sitting Balance Ability Good Dynamic Sitting Balance Ability Good M5 PT-IP Objective Assessments Start: 02/04/19 17:03 Freq: NEEDED Status: Active Protocol: Document 02/05/19 10:28 AB (Rec: 02/05/19 12:56 AB [id number]) Orientation Orientation/Cognition Level of Alertness Alert Orientation Name Age Place Situation Language Function Ability Hard of Hearing Safety Awareness Understands Safety Issues Memory Description Short Term Impaired Gross Range of Motion Lower Extremity ROM Assessment Within Functional Limits Strength Lower Extremity Strength Assessment Within Functional Limits Coordination Assessment Gross Coordination Gross Coordination WNL Sensation Assessment Sensation Gross Sensation Left LE Impaired Sensation Description Numbness Comments Sensation Comments stated that L lower leg still feels a little numb Muscle Tone Muscle Tone WNL Yes Other Assessments Other Other Assessments increase L genu varum M6 PT-IP Treatment Start: 02/04/19 17:03 Freq: NEEDED Status: Active Protocol: Document 02/06/19 16:31 SA (Rec: 02/06/19 16:37 SA [id number]) Physical Therapy Treatment Exercises Exercises Ankle Pumps Gluteal Sets Quad Sets Education Education Provided Precautions Safety M7 PT-IP Assessment and Plan Start: 02/04/19 17:03 Freq: NEEDED Status: Active Protocol: Document 02/06/19 16:31 SA (Rec: 02/06/19 16:37 SA [id number]) PT Summary Assessment and Plan Potential Rehabilitation Potential Good Status of Condition at Evaluation Stable Summary Progress Towards Goals Progressing Toward Goals Assessment Summary Pt progressing well, anticipate d/c home with help tomorrow. Pt maintains spinal precautions well with activity. Frequency of Treatment Frequency Of Treatment Twice a Day Treatment Plan Physical Therapy Treatment Plan Bed Mobility Training Transfer Training Gait Training Therapeutic Exercise Balance Retraining Post Op Education Discharge Planning Hot or Cold Pack Neuromuscular Re-ed Coordination Retraining Manual Therapy Recommendations To Nursing Amount of Assist Needed 1 Person Assist Discharge Recommendations PT Discharge Recommendations Home with Assistance
[2019-02-06] MEDS: ONDANSETRON 4 MG/2 ML INJ IV (19:23)
[2019-02-06] MEDS: SODIUM CHLORIDE 0.9% FLUSH 10 ML IV (19:23)
[2019-02-07] MEDS: ONDANSETRON 4 MG/2 ML INJ IV (02:07)
[2019-02-07 03:50] VITALS: BP 148/83; PULSE 82; RESP 16; TEMP 36.4; O2SAT 97
[2019-02-07] MEDS: METOCLOPRAMIDE 10 MG/2 ML INJ IV (04:17)
--- NOTE | 2019-02-07 07:45 | P.PN_ITS ---
Subjective Date Patient Seen: 02/07/19 Time Patient Seen: 07:44 Interval history: He is doing very well. No more nausea at this point. independent with ambulation Exam Vital Signs (past 8 hours): - 02/06/19 23:55 02/07/19 03:50 Temperature 99.0 F 97.6 F Pulse Rate 88 82 Respiratory Rate 16 16 Blood Pressure 141/79 H 148/83 H Pulse Oximetry 98 97 Oxygen Delivery Method Room Air Oxygen Flow Rate 0 Back/Spine/Pelvis Other: Mild drainage in the inferior aspect of the dressing. 5/5 motor both low er extremities. Objective Labs Result Diagrams: 02/05/19 04:50 Assessment & Plan Post-op Postoperative Procedures Operation Date: 02/04/19 07:45 Actual Procedures Side Surgeon p L4-5 laminectomy and instrumented fusion (TLIF) w/bone graft Maikol Rueda MD He is doing well. Discharge home today after physical therapy. Quality VTE Deep Vein Thrombosis/Pulmonary Embolism Present on Admission: No
--- NOTE | 2019-02-07 07:45 | PM.DS.1 ---
History of Present Illness Date Patient Seen: 02/07/19 Time Patient Seen: 07:45 Chief complaint: [id number] TLIF/[place] Narrative: 83-year-old male with spinal stenosis. Severe back pain with pain radiating down the left leg. He failed conservative management. Discharge Providers Date of admission: 02/04/19 05:43 Discharge Date: 02/07/19 Primary care physician: Dalton Shaikh MD Consults: 01/21/19 11:38 Consult to Pastoral Services Routine Comment: TLIF 02/04/19 02/04/19 12:15 Consult to Occupational Therapy Evaluate & Treat Comment: Physician Instructions: Evaluate and treat Consult to Physical Therapy Evaluate & Treat Comment: Physician Instructions: Evaluate and Treat Discharge provider: Maikol Rueda MD Summary Discharge Diagnosis: Lumbar stenosis with radiculopathy Lumbar spondylolisthesis Hospital Course: He was admitted on 02/04/2019 for an L4-5 TLIF. His postoperative recovery was complicated by nausea, which he has a history of with narcotic medication. He mobilized well with physical therapy. By date of discharge he was independent with ambulation and not having any more nausea. Status at Discharge Cognitive/behavioral status at discharge: oriented Functional status at discharge: uses cane/walker Overall status at discharge: patient is progressing back to baseline Exam Vital Signs (past 8 hours): - 02/06/19 23:55 02/07/19 03:50 Temperature 99.0 F 97.6 F Pulse Rate 88 82 Respiratory Rate 16 16 Blood Pressure 141/79 H 148/83 H Pulse Oximetry 98 97 Oxygen Delivery Method Room Air Oxygen Flow Rate 0 Const Orientation: alert and oriented x3 Other: Mild drainage. 5/5 motor both lower extremities. Objective Labs Result Diagrams: 02/05/19 04:50 Discharge Plan Discharge Plan Patient Disposition: Home Discharge comment: f/u 1.5 wks Discharge Med Rec/Prescriptions Prescriptions: New celecoxib [Celebrex] 200 mg Capsule 200 mg PO BID PRN (Reason: pain) Qty: 60 RF: 0 docusate sodium 100 mg Capsule 100 mg PO BID PRN (Reason: constipation) Qty: 40 RF: 0 hydroxyzine pamoate 25 mg Capsule 25 mg PO Q4H PRN (Reason: spasms) Qty: 20 RF: 0 tramadol 50 mg Tablet 50 mg PO Q4HR PRN (Reason: Pain, Moderate (4-6)) Qty: 30 RF: 0 Continued aspirin 81 mg Tablet,Delayed Release (Dr/Ec) 81 mg PO DAILY Qty: 0 RF: 0 multivitamin Capsule 1 cap PO DAILY Qty: 0 RF: 0 [CO Q10] 200 mg PO QDAY Qty: 0 RF: 0 albuterol sulfate [Ventolin HFA] 90 mcg/actuation Hfa Aerosol Inhaler 2 puff INHALATION Q4-6H Qty: 0 RF: 0 cholecalciferol (vitamin D3) [Vitamin D3] 5,000 unit Tablet 5,000 unit PO DAILY Qty: 0 RF: 0 simvastatin 40 mg Tablet 40 mg PO BEDTIME RF: 0 Symbicort 160-4.5 mcg/actuation Hfa Aerosol Inhaler 1 puff INHALATION BID RF: 0 ipratropium bromide 0.02 % Solution 2.5 ml INHALATION Q6-8H PRN (Reason: SOB) RF: 0 Discontinued tramadol 50 mg Tablet 50 mg PO BID PRN (Reason: Pain) RF: 0 Follow up/Referrals: Dalton Shaikh MD [Primary Care Provider] - Provider Discharge Instructions Diet: Diet as Tolerated Activity: limited BLT 10 lbs Skin/Wound/Dressing Care Report to your healthcare provider any signs of infection, such as:: chills, fever, night sweats, increased pain, unusual drainage and unusual redness Dressing: may change dressing and shower POD#5 Visit Report/Discharge Packet Instructions: How to Prevent Falls, DI for Postoperative Pain, DI for Transforaminal Lumbar Interbody Fusion Stand Alone Forms: Surgery Discharge Visit Report Forms: Stroke Signs & Symptoms Discharge Data Primary Care Provider: Dalton Shaikh Attending Provider: Maikol Rueda Admit Date/Time: 02/04/19 05:43 Quality VTE Deep Vein Thrombosis/Pulmonary Embolism Present on Admission: No
--- NOTE | 2019-02-07 08:26 | PT.IPTN ---
Current Diagnoses Spondylolisthesis, lumbar region (02/04/19) Spinal stenosis, lumbar region with neurogenic claudication (02/04/19) Surgery Performed Operation Date: 02/04/19 07:45 Actual Procedures p L4-5 laminectomy and instrumented fusion (TLIF) w/bone graft - Maikol Rueda MD Physical Therapy Treatment Note M2 PT-IP Current Condition Start: 02/04/19 17:03 Freq: NEEDED Status: Active Protocol: Document 02/05/19 10:28 AB (Rec: 02/05/19 12:56 AB [id number]) Physical Therapy Current Condition Current Condition Evaluation Date 02/05/19 Treatment Diagnosis s/p L4-5 TLIF; difficulties in walking Onset Date 02/04/19 Precautions Lumbar Precautions Log Roll No Twisting Limit Bending Lifting Restriction of 10 lbs Gait Belt above Incisional Area M3 PT-IP Subjective Start: 02/04/19 17:03 Freq: NEEDED Status: Active Protocol: Document 02/07/19 08:16 SA (Rec: 02/07/19 08:26 SA [id number]) Subjective Physical Therapy Visit Type Type Treatment Note Visit Start Time 07:57 Visit Stop Time 08:15 Total Visit Minutes 18 Number of AUTO DISMANTLER Visits 3 Physical Therapy Visit Comments Patient Comments Pt supine in bed, agreeable to PT this AM. Patient Goals D/C home today. Therapy Pain Assessment Pain When Pain Assessed During Mobility Pain Present Pain Present Pain Reported Location Lower Back Intensity 1 Scale Used Numeric (1 - 10) M4 PT-IP Mobility and Gait Start: 02/04/19 17:03 Freq: NEEDED Status: Active Protocol: Document 02/07/19 08:16 SA (Rec: 02/07/19 08:26 [id number]) PT-Bed Mobility Assessment Rolling Type of Rolling Log Rolling Roll to Left Level of Assist Standby Assistance Supine to Sit Supine to Sit Standby Assistance Sit to Supine Sit to Supine Standby Assistance Scooting Scooting to Edge of Bed Standby Assistance Scooting Up and Down in Bed Standby Assistance PT-Transfer Assessment Sit to and From Stand Sit to and from Stand Standby Assistance Equipment Transfer Assistive Device Gait Belt Front Wheeled Walker Orthotic/Prosthetic Devices or Brace: No Transfers Transfer Destination Bed Chair Transfer Technique Stand Step Pivot Transfer Ability Level of Assist Standby Assistance Comments Mobility Comments PT SBA with all mobilities, adheres to spinal precautions and reports very little pain. Gait Assessment Gait Gait Assistance Required: Standby Assistance Distance (Feet) 325 Able to Maintain Weight Bearing Status Yes During Gait Assistive Devices Assistive Device Gait Belt Front Wheeled Walker Orthotic/Prosthetic Devices or Brace: No Gait Deviations General Gait Pattern Antalgic Narrow Based Gait Factors Limiting Gait Function Factors Limiting Gait Function Decreased Activity Tolerance Decreased Strength Limited Range of Motion Comments Gait Comments Pt denies pain with ambulation stating that it feels good. Improving posture and step length with decreased gaurded. Stair Climbing Assessment Evaluation Level of Assist On Stairs Standby Assistance Devices Stair Climbing Assistive Devices Left Railing Technique/Endurance Stair Climbing Direction Ascend and Descend Stair Climbing Technique Step Over Step Stair Climbing Set # Repetitions (reps) 2 Comments Stair Climbing Comments PT safe with stair managenent with SBA. PT-Balance Assessment Sitting Balance and Reactions Static Sitting Balance Ability Good Dynamic Sitting Balance Ability Good Comments Other Balance Tests/Deviations/Treatment Standing heel/toe rasies as : FWW. M5 PT-IP Objective Assessments Start: 02/04/19 17:03 Freq: NEEDED Status: Active Protocol: Document 02/05/19 10:28 AB (Rec: 02/05/19 12:56 AB [id number]) Orientation Orientation/Cognition Level of Alertness Alert Orientation Name Age Place Situation Language Function Ability Hard of Hearing Safety Awareness Understands Safety Issues Memory Description Short Term Impaired Gross Range of Motion Lower Extremity ROM Assessment Within Functional Limits Strength Lower Extremity Strength Assessment Within Functional Limits Coordination Assessment Gross Coordination Gross Coordination WNL Sensation Assessment Sensation Gross Sensation Left LE Impaired Sensation Description Numbness Comments Sensation Comments stated that L lower leg still feels a little numb Muscle Tone Muscle Tone WNL Yes Other Assessments Other Other Assessments increase L genu varum M6 PT-IP Treatment Start: 02/04/19 17:03 Freq: NEEDED Status: Active Protocol: Document 02/07/19 08:16 SA (Rec: 02/07/19 08:26 SA [id number]) Physical Therapy Treatment Exercises Exercises Ankle Pumps Gluteal Sets Quad Sets Education Education Provided Precautions Safety M7 PT-IP Assessment and Plan Start: 02/04/19 17:03 Freq: NEEDED Status: Active Protocol: Document 02/07/19 08:16 SA (Rec: 02/07/19 08:26 SA [id number]) PT Summary Assessment and Plan Potential Rehabilitation Potential Good Status of Condition at Evaluation Stable Summary Progress Towards Goals Safe For Discharge Goals Met Assessment Summary Pt ready for d/c home today, safe with all mobilites with SBA, executes log roll technique well, manages stairs with SBA and adheres to spinal precautions. Has FWW at home. Frequency of Treatment Frequency Of Treatment Twice a Day Treatment Plan Physical Therapy Treatment Plan Bed Mobility Training Transfer Training Gait Training Therapeutic Exercise Balance Retraining Post Op Education Discharge Planning Hot or Cold Pack Neuromuscular Re-ed Coordination Retraining Manual Therapy Recommendations To Nursing Amount of Assist Needed 1 Person Assist Discharge Recommendations PT Discharge Recommendations Home with Assistance
[2019-02-07] MEDS: DOCUSATE 100 MG CAPSULE PO (08:47)
[2019-02-07] MEDS: MULTIVITAMIN 1 TABLET 1 TAB PO (08:47)
[2019-02-07] MEDS: ASPIRIN EC 81 MG TABLET PO (08:47)
[2019-02-07] MEDS: CHOLECALCIFEROL (VITAMIN D3) 5,000 UNIT TABLET 5000 UNIT PO (08:47)
[2019-02-07] MEDS: MAGNESIUM HYDROXIDE 30 ML UDC PO (08:51)
[2019-02-07 10:30] VITALS: BP 133/79; PULSE 77; RESP 16; TEMP 36.6; O2SAT 98
[2019-02-07] MEDS: TRAMADOL 50 MG TABLET PO (11:18)
--- NOTE | 2019-02-07 11:27 | PC.NURSE ---
Addendum entered by Leslee Dominguez R.N. 02/07/19 11:53: Pt left unit at 1152 via wheelchair with DAMPENER in no distress. Addendum entered by Leslee Dominguez R.N. 02/07/19 11:52: Reviewed discharge instructions with pt from Discharge Summary Packet, No voiced concerns. F/U appointments confirmed with Dr. Eugene office and dates placed in packet info under Follow up. No further voiced concerns. Pt's friend present to drive pt home. Pt states has all belongings. Original Note: Day Shift- Lower dressing removed and changed per order. 2 incisions well approximated, sutures intact. No s/s of infection. Pt tolerated well. Coversite plus dressing applied. PRN Tramadol 50mg given prior to discharge home as care ride is 35miles. Pain 1-2/10 achigng o lower back.
--- NOTE | 2019-02-07 11:30 | OT.IP.TRT ---
Current Diagnoses Spondylolisthesis, lumbar region (02/04/19) Spinal stenosis, lumbar region with neurogenic claudication (02/04/19) Surgery Performed Operation Date: 02/04/19 07:45 Actual Procedures p L4-5 laminectomy and instrumented fusion (TLIF) w/bone graft - Maikol Rueda MD Occupational Therapy Treatment Note M2 OT-IP Current Condition Start: 02/05/19 15:43 Freq: Status: Active Protocol: Document 02/05/19 14:28 PJM (Rec: 02/05/19 15:59 PJM [id number]) Occupational Therapy Current Condition Current Condition Evaluation Date 02/05/19 Treatment Diagnosis decreased self care, functional mobility s/p L4-5 lami, TLIF Diagnosis Onset Date 01/25/19 Post Operative Precautions Lumbar Precautions Log Roll No Twisting Limit Bending Lifting Restriction of 10 lbs Gait Belt above Incisional Area M3 OT- IP Subjective and Pain Start: 02/05/19 15:43 Freq: Status: Active Protocol: Document 02/07/19 11:18 [facility] (Rec: 02/07/19 11:30 [facility] [id number]) OT- Subjective Occupational Therapy Visit Type Type Treatment Note Visit Start Time 10:45 Visit Stop Time 11:15 Total Visit Minutes 30 Occupational Therapy Visit Comments Patient Comments Pt attempted twice for shower , but on the toilet. OT Pain Assessment Pain When Pain Assessed At Rest Pain Present Pain Present Denied Pain M4 OT- IP ADL's Start: 02/05/19 15:43 Freq: Status: Active Protocol: Document 02/07/19 11:18 [facility] (Rec: 02/07/19 11:30 [facility] [id number]) OT ADL-Grooming General Evaluation Areas Needing Assistance Retrieving/Set-up of Grooming Items Comments OT Grooming Comments SBA for items, vc to have a bag on the FWW so able to safely transport items. OT ADL-Oral Care General Eval Oral Care Ability Independent OT ADL-Dressing General Eval Upper Body Dressing Ability Independent Lower Body Dressing Ability Minimal Assistance Areas Needing Assistance Shoes Assistive Devices Dressing Assistive Devices Long Handled Shoe Horn Bread Oven Operator Sock Aid Comments OT Dressing Comments Pt just needing assist to thao shoes with velcro. Pt issued long handle shoe horn so able to thao on his own. OT ADL-Toileting General Evaluation Toileting Ability Independent OT ADL-Bathing Bathing Type Bathing Type Shower General Evaluation Bathing Ability Minimal Assistance Areas Needing Assistance Wash/Dry Upper Body Wash/Dry Lower Extremities Comments OT Bathing Comments Pt states at home to have someone to assist . Today just needing assist to wash/dry his back and dry his shoes. M5 OT- IP IADL's Start: 02/05/19 15:43 Freq: Status: Active Protocol: Document 02/05/19 14:28 PJM (Rec: 02/05/19 15:59 PJM [id number]) OT-Instrumental Activities of Daily Living Deficits IADL Deficits Identified Deficits Home Safety Awareness Awareness of Need for Assistance at Home Good Awareness Ability to Problem Solve Emergency Able to Problem Solve Situations Medication Management Medication Management No Deficits Identified Money Management Money Management No Deficits Identified Meal Preparation Meal Preparation Caregiver Provides Assist Meal Preparation Comments family and neighbors to assist until pt able Fan Runner Fan Runner Caregiver Provides Assist Fan Runner Comments family and neighbors to assist until pt able Driving Driving Caregiver Provides Assist Driving Comments family and neighbors to assist until pt able M6 OT- IP Functional Cognition Start: 02/05/19 15:43 Freq: Status: Active Protocol: Document 02/07/19 11:18 [facility] (Rec: 02/07/19 11:30 [facility] [id number]) Cognitive Factors Limiting Selfcare Function Cognitive Ability Level of Alertness Alert Patient Orientation Name Age Birthday Month Date Year Day of Week Place Situation Attention Span Ability Capable of Focused Attention Capable of Sustained Attention Ability to Follow Commands Able to Follow Multi-Step Commands Memory Description No Deficits Noted Safety Awareness No Deficits Noted Problem Solving Ability No deficits Noted Cognitive Comments Cognitive Assessment Comments Intact. OT- Vision and Hearing OT- Hearing Assessment OT- Hearing Assessment Hearing Impaired Right Ear Impaired Left Ear Impaired Use of Hearing Aids M7 OT- IP Mobility and Balance Start: 02/05/19 15:43 Freq: Status: Active Protocol: Document 02/07/19 11:18 [facility] (Rec: 02/07/19 11:30 [facility] [id number]) OT-Transfer Assessment Sit to and From Stand Sit to and from Stand Standby Assistance 1 Person Assistance Transfers Transfer Ability Standby Assistance 1 Person Assistance Technique Transfer Destination Chair Transfer Technique Stand Step Pivot Devices Transfer Assistive Devices Gait Belt Front Wheeled Walker OT- Balance Assessment Sitting Balance and Reactions Static Sitting Balance Ability Normal Dynamic Sitting Balance Ability Good Standing Balance and Reactions Static Standing Balance Ability Good Dynamic Standing Balance Ability Fair Comments Other Balance Tests/Deviations/Treatment Pt moving well and looking to : go home today. M8 OT- IP Objective Assessments Start: 02/05/19 15:43 Freq: Status: Active Protocol: Document 02/05/19 14:28 PJM (Rec: 02/05/19 15:59 PJM [id number]) OT Gross Range of Motion Upper Extremity Range of Motion Assessment Within Functional Limits OT Strength Upper Extremity Strength Assessment Within Functional Limits Hand Manager Action Strength Hand Dominance Right OT- Coordination Assessment Comments Coordination Comments BUE WFL OT-Muscle Tone Assessment Muscle Tone WNL Yes OT Sensation Assessment Comments Summary Comments Pt denies deficits in BUES M9 OT- IP Assessment and Plan Start: 02/05/19 15:43 Freq: Status: Active Protocol: Document 02/07/19 11:18 [facility] (Rec: 02/07/19 11:30 [facility] [id number]) OT Summary Assessment and Plan Potential Rehabilitation Potential Good Summary OT Impairments Pain Balance Dressing Toileting Bathing Toilet Transfers Shower Transfers Progress Towards Goals Progressing Toward Goals Assessment Summary Pt going home today. Goals Grooming Goal Independent Dressing Goal Independent Long Handled Shoe Horn Bread Oven Operator Sock Aid Toileting Goal Independent Bathing Goal Standby Assistance Long Handled Sponge or [employer] Toilet Transfer Goal Independent Shower Transfer Goal Standby Assistance Tub/Shower Combination Tub Transfer Bench Patient/Caregiver Education Goal Demonstrate Post-Op Precautions Demonstrate Energy Conservation and Pacing Treatment Plan OT Treatment Plan Discharge Planning Discharge Recommendations OT Discharge Recommendations Home with Assistance Home Equipment Needs shower chair, transfer bench
== END 2019-02-07 11:52 | disposition home or self-care (01) | DRG 455 ==
PROVIDERS: Admitting Provider Orthopaedic Surgery; Family Provider Family Medicine; PCP Family Medicine; Visit Provider Orthopaedic Surgery
PROC: 0SG00AJ Fusion of Lumbar Vertebral Joint with Interbody Fusion Device, Posterior Approach, Anterior Column, Open Approach (ICD-10-PCS; principal; 2019-02-04 07:45)
DX: M48.062 Spinal stenosis, lumbar region with neurogenic claudication (principal); M43.16 Spondylolisthesis, lumbar region; I73.9 Peripheral vascular disease, unspecified; I25.9 Chronic ischemic heart disease, unspecified; I10 Essential (primary) hypertension; E78.5 Hyperlipidemia, unspecified; J44.9 Chronic obstructive pulmonary disease, unspecified; R11.0 Nausea
CPT/HCPCS: 36415; 72100; 76000; 85014; 85018; 94762; 97116; 97161; 97165; 97530; 97535; C1776; J0171; J0330; J0595; J0690; J1100; J2250; J2274; J2405; J2704; J2765; J3010